=== PATIENT | male | born 1970 | race Caucasian/White ===

== ENCOUNTER 2019-12-26 18:31 | Emergency (ER) | payer BC ==
[2019-12-26 18:47] VITALS: PULSE 89
--- NOTE | 2019-12-26 19:27 | EDM.PDOC ---
ED HPI GENERAL MEDICAL PROBLEM - General Chief Complaint: Lower Extremity Injury/Pain Stated Complaint: GOUT Time Seen by Provider: 12/26/19 19:01 Source of Information: Reports: Patient History Limitations: Reports: No Limitations - History of Present Illness INITIAL COMMENTS - FREE TEXT/NARRATIVE: 49-year-old male with history of hypertension, gout presents with gout flareup o n the right foot for about 10 days. He noticed the swelling and pain began in the right great toe and spread to the right forefoot and midfoot over the last 10 days. He has been taking double doses of allopurinol over the last 3 days with improvement. He denies fever, chills, trauma, immunocompromise state. ROS: A 10-point review of systems, other than pertinent positives and negatives as stated per HPI, is otherwise negative PHYSICAL EXAM General: AOx4, GCS = 15, mild distress HEENT: dry mucous membrane Neck: supple, no meningismus, no Kernig or Brudzinski Cardiac: S1S2 RRR Respiratory: CTAB, no crackles or rales, no wheezing Abdomen: Soft, nontender, no rebound or guarding, nondistended, no pulsatile mass. Back: nontender Musculoskeletal: NVI distally, nml painless ROM to right ankle. Erythema/swelling/tenderness to right forefoot. No skin ulcers on right foot sole. Neuro: No focal deficits right foot, left knee Pain Score (Numeric/FACES): 10 - Related Data Allergies Allergy/AdvReac Type Severity Reaction Status Date / Time No Known Allergies Allergy Verified 12/26/19 18:47 Home Meds: Home Meds Indomethacin 50 mg PO TID #30 capsule 12/26/19 [Rx] predniSONE [Prednisone] 30 mg PO DAILY #5 tablet 12/26/19 [Rx] Past Medical History HEENT History: Reports: None Cardiovascular History: Reports: Hypertension Respiratory History: Reports: None Gastrointestinal History: Reports: None Genitourinary History: Reports: None Musculoskeletal History: Reports: Gout Neurological History: Reports: None Psychiatric History: Reports: None Endocrine/Metabolic History: Reports: None Hematologic History: Reports: None Immunologic History: Reports: None Oncologic (Cancer) History: Reports: None Dermatologic History: Reports: None - Infectious Disease History Infectious Disease History: Reports: Chicken Pox - Past Surgical History Head Surgeries/Procedures: Reports: None Cardiovascular Surgical History: Reports: Other (See Below) Other Cardiovascular Surgeries/Procedures: Open heart surgery on 04/13/18, Valve replaced Social & Family History - Family History Family Medical History: Noncontributory - Tobacco Use Smoking Status *Q: Never Smoker - Caffeine Use Caffeine Use: Reports: Coffee - Recreational Drug Use Recreational Drug Use: No Review of Systems - Review of Systems Review Of Systems: Comprehensive ROS is negative, except as noted in HPI. ED EXAM, GENERAL - Physical Exam Exam: Not Obtained (see dictation) Course - Vital Signs Last Recorded V/S: Last Vital Signs Temp 98.1 F 12/26/19 18:44 Pulse 89 12/26/19 18:44 Resp 20 12/26/19 18:44 BP 132/87 12/26/19 18:44 Pulse Ox 96 12/26/19 18:44 - Re-Assessments/Exams Free Text/Narrative Re-Assessment/Exam: 12/26/19 19:33 - He exhibits normal vital signs and has exhibited a normal gait. I advised the patient to return to the ER for reevaluation if symptoms worsened, and to follow up with their PCP within 2-3 days. MEDICAL DECISION MAKING: I reviewed the patients past medical records, lab and radiographic findings. I discussed the case with the patient. My differential diagnosis included: Gouty arthritis, cellulitis. Patient exhibits signs consistent with his gout. It initiated with pain and swelling to his right great toe, gradually migrating to his right forefoot over the last 10 days. He has been taking double doses of allopurinol with mild symptomatic relief. He has not taking any anti-inflammatory medication. He denies any fever, chills, pain with joint range of motion, he is not diabetic or immunocompromise, I do not suspect septic arthritis. His compartments are soft, I do not suspect compartment syndrome. I did give him strict return precautions for fever, chills, worsening pain despite treatments with prednisone and indomethacin prescribed today. Departure - Departure Time of Disposition: 19:35 Disposition: Home, Self-Care 01 Condition: Good Clinical Impression: Gouty arthritis - Discharge Information *PRESCRIPTION DRUG MONITORING PROGRAM REVIEWED*: Not Applicable *COPY OF PRESCRIPTION DRUG MONITORING REPORT IN PATIENT SURESH: Not Applicable Prescriptions: Indomethacin 50 mg PO TID #30 capsule predniSONE [Prednisone] 30 mg PO DAILY #5 tablet Instructions: Low-Purine Eating Plan Referrals: Ignacio Hernández MD [Primary Care Provider] - 3 Days Forms: ED Department Discharge Additional Instructions: The following information is given to patients seen in the emergency department who are being discharged to home. This information is to outline your options for follow-up care. We provide all patients seen in our emergency department with a follow-up referral. The need for follow-up, as well as the timing and circumstances, are variable depending upon the specifics of your emergency department visit. If you don't have a primary care physician on staff, we will provide you with a referral. We always advise you to contact your personal physician following an emergency department visit to inform them of the circumstance of the visit and for follow-up with them and/or the need for any referrals to a consulting specialist. The emergency department will also refer you to a specialist when appropriate. This referral assures that you have the opportunity for follow-up care with a specialist. All of these measure are taken in an effort to provide you with optimal care, which includes your follow-up. Under all circumstances we always encourage you to contact your private physician who remains a resource for coordinating your care. When calling for follow-up care, please make the office aware that this follow-up is from your recent emergency room visit. If for any reason you are refused follow-up, please contact the [facility] Emergency Department at and asked to speak to the emergency department charge nurse. If you do not have a primary care doctor, please follow up with the clinics below within 3-5 days. [facility] - [facility] [address] [place] [id number] [facility] [address] [place] [address] Sepsis Event Note (ED) - Evaluation Sepsis Screening Result: No Definite Risk - Focused Exam Vital Signs: Vital Signs Temp Pulse Resp BP Pulse Ox 12/26/19 18:44 98.1 F 89 20 132/87 96
[2019-12-26 19:49] VITALS: BP 115/79
== END 2019-12-26 19:45 | disposition home or self-care (01) ==
LOC: MW.ED 18:31
DX: M10.9 Gout, unspecified (principal); I10 Essential (primary) hypertension; Z79.899 Other long term (current) drug therapy
CPT/HCPCS: 99283

== ENCOUNTER 2020-05-01 10:35 | Emergency (ER) | payer BC ==
[2020-05-01] MEDS ORDERED: Sodium Chloride 0.9% 10 ML Syringe FLUSH PRN (10:55)
[2020-05-01] MEDS ORDERED: Sodium Chloride 0.9% 2.5 ML Syringe FLUSH PRN (10:55)
--- NOTE | 2020-05-01 10:57 | EDM.PDOC ---
ED HPI GENERAL MEDICAL PROBLEM - General Chief Complaint: Respiratory Problem Stated Complaint: COVID Time Seen by Provider: 05/01/20 10:55 Source of Information: Reports: Patient, EMS History Limitations: Reports: No Limitations - History of Present Illness INITIAL COMMENTS - FREE TEXT/NARRATIVE: This is a 49-year-old male with a past medical history of CABG, gout, presenting with altered mental status and shortness of breath. He arrives to the hospital by ambulance. Paramedics note that he was diagnosed with COVID-19 about 1 week ago. Patient called the ambulance today due to worsening shortness of breath. When paramedics arrived, the patient exhibited altered mental status and had room air saturations in the 70s. They placed him on high flow oxygen and his saturations only improved to 88%. He became increasingly altered in route so they began assisting ventilations with a [id number]. Patient arrives to the hospital with altered mental status and respiratory failure, he is nonverbal and unable to participate in the HPI. ROS: Unable to obtain due to respiratory failure and critical illness. Past medical history: Reviewed, no additional pertinent history. Surgical history: Reviewed in system, no additional pertinent history. Social history: Reviewed in system, no additional pertinent history. Family history: Reviewed in system, no additional pertinent history. PHYSICAL EXAM Vital signs reviewed. Nursing notes reviewed. Constitutional: Awake, ill-appearing. Head: Normocephalic, atraumatic. Eyes: EOMI, conjunctiva normal, no discharge, no scleral icterus. Ears, Nose, Throat: External ears and nose normal, moist oral mucosa. Cardiovascular: Tachycardic, 2+ radial pulse, capillary refill less than 2 seconds. Pulmonary: Tachypneic, rapid and shallow breathing, Abdomen/GI: Obese, soft nontender, nondistended, no guarding or rigidity, no masses. Musculoskeletal: No deformities. Integumentary: Appropriate color for ethnicity, warm, cool, no pallor or jaundice, no rash. Neurologic: Eyes open but nonverbal, moving all extremities. Psychiatric: Unable to assess This patient was seen and evaluated during the 2019 SARS-CoV-2 novel coronavirus pandemic period. Community viral transmission is ongoing at time of this encounter and the emergency department is operating under pandemic response procedures. - Related Data Allergies Allergy/AdvReac Type Severity Reaction Status Date / Time No Known Allergies Allergy Verified 12/26/19 18:47 Home Meds: Home Meds Indomethacin 50 mg PO TID #30 capsule 12/26/19 [Rx] predniSONE [Prednisone] 30 mg PO DAILY #5 tablet 12/26/19 [Rx] Past Medical History HEENT History: Reports: None Cardiovascular History: Reports: Hypertension Respiratory History: Reports: None Gastrointestinal History: Reports: None Genitourinary History: Reports: None Musculoskeletal History: Reports: Gout Neurological History: Reports: None Psychiatric History: Reports: None Endocrine/Metabolic History: Reports: None Hematologic History: Reports: None Immunologic History: Reports: None Oncologic (Cancer) History: Reports: None Dermatologic History: Reports: None - Infectious Disease History Infectious Disease History: Reports: Chicken Pox - Past Surgical History Head Surgeries/Procedures: Reports: None Cardiovascular Surgical History: Reports: Other (See Below) Other Cardiovascular Surgeries/Procedures: Open heart surgery on 04/13/18, Valve replaced Social & Family History - Family History Family Medical History: No Pertinent Family History - Caffeine Use Caffeine Use: Reports: Coffee ED ROS GENERAL - Review of Systems Review Of Systems: See Below ED EXAM, GENERAL - Physical Exam Exam: See Below ED RESPIRATORY PROCEDURES - Endotracheal Intubation Time of Intubation: 11:12 ET Intubation Indication: Respiratory Failure, Airway Protection Preparation: Suction, Balloon Tested, BVM Set Up, Difficult Airway Equip Airway Assessment: Obese Pre-Oxygenation: Assisted with BVM, 100% FiO2 Anesthesia Meds: Etomidate, Rocuronium Placement: Orotracheal Cords Visualized: Yes, Grade 1 ETT Size In mm: 8.0 Number of Attempts: 1 Confirmed By: CO2 Indicator, Bilateral Breath Sounds, Chest Xray Tube Secured By: By RT Endotracheal Intubation Comment: Advanced 2 cm after post-intubation x-ray. #1 Interpretation EKG Interpretation Comments: 12-Lead ECG Interpretation Acquired: 11:11 AM Rhythm: Sinus tachycardia Rate: 126 bpm [place]: Normal Intervals: Left bundle branch block Ectopy: None RV Strain: No obvious RV strain pattern. ST Segments/T-Waves: No notable changes Acute Ischemic Changes: None apparent Interpretation: No STEMI Course - Vital Signs Text/Narrative:: 49-year-old male with acute hypoxic respiratory failure. Immediately roomed on arrival, transferred to hospital bed, monitoring equipment attached.. He has significant tachypnea and altered mental status. Decision made to intubate by rapid sequence intubation given decreased mental status. Additional IV access was established. Intubation was uncomplicated - refer to the procedure note. Chest x-ray shows the ET tube in the trachea in high position, it was advanced 2 cm. Chest x-ray shows patchy bilateral airspace opacities. Patient was given a bolus of propofol and started on a propofol infusion. A gas tric tube was placed. A Huang catheter was also placed with scant output. 1:05 PM: Labs show leukocytosis of 28.35, platelets 541. INR is normal. ABG on the ventilator shows metabolic acidosis with pH 6.85, bicarb 11, PCO2 57, PO2 114. Lactate is 1.5. Metabolic panel shows renal failure - creatinine 17.1, carbon dioxide is 7.8, glucose is 172. Troponin and BNP are negative. Salicylates, acetaminophen, ketones are negative. We are increasing the minute volume to help combat the metabolic acidosis and we are going to order a sodium bicarbonate infusion. I spoke with the accepting billboard poster helper at [facility] in [place] who agrees to accept the transfer. We are waiting for the flight crew to arrive to transport the patient. 11:20 AM: We are attempting to find an accepting hospital with an ICU bed for the patient. Given IV cefepime, vancomycin, and dexamethasone. 2:10 PM: The flight crew has arrived. The patient continues to have severe metabolic acidosis, although his pH is slightly improved after adjusting his ventilator settings to increase the minute volume. He is now on a sodium bicarbonate infusion. He will likely need to have emergent dialysis performed at [facility]. He also has developed some hypotension. The propofol infusion has stopped. We are going to start a fentanyl infusion instead of propofol. 3:40 PM: The flight crew has not left the emergency department yet. I was called to the bedside by the patient's nurse. The patient was hypotensive with a systolic blood pressure between 40s to 50s. I instructed the flight crew to stop the fentanyl infusion. The flight crew had apparently started the patient on norepinephrine infusion at 30 mcg/min without informing me. I administered 50 mcg of epinephrine 1:10,000 IV. I instructed the flight crew to increase their norepinephrine infusion to 55 mcg/min (roughly 0.5 mcg/kg/min). The blood pressure promptly improved to 160 systolic. We ordered a vasopressin bag which the flight crew can utilize if needed. The blood pressure seems to have recovered appropriately at this point. Flight crew departed the ER in good condition. Last Recorded V/S: Last Vital Signs Temp 36.5 C 05/01/20 11:40 Pulse 119 H 05/01/20 12:03 Resp 14 05/01/20 12:03 BP 157/97 H 05/01/20 12:03 Pulse Ox 94 L 05/01/20 12:03 - Orders/Labs/Meds Orders: Active Orders 24 hr Category Date Time Status Cardiac Monitoring [RC] . DIRECTED Care 05/01/20 10:55 Active EKG 12 Lead [EKG Documentation Completion] [RC] STAT Care 05/01/20 10:57 Active Pulse Oximetry [RC] ASDIRECTED Care 05/01/20 10:55 Active RASS Sedation Scale [RC] ASDIRECTED Care 05/01/20 12:09 Active CULTURE BLOOD [BC] Stat Lab 05/01/20 11:11 Received CULTURE BLOOD [BC] Stat Lab 05/01/20 11:20 Received Norepinephrine Bit/0.9 % NaCl [Norepinephr-0.9% NaCl 4 Med 05/01/20 14:15 Active mg/250] 4 mg in 250 ml IV TITRATE Sodium Bicarbonate [Sodium Bicarbonate 8.4%] 150 meq Med 05/01/20 13:00 Active Dextrose 5% in Water 1,000 ml IV ONETIME Sodium Chloride 0.9% [Saline Flush] Med 05/01/20 10:55 Active 10 ml FLUSH ASDIRECTED PRN Sodium Chloride 0.9% [Saline Flush] Med 05/01/20 10:55 Active 2.5 ml FLUSH ASDIRECTED PRN Vasopressin 100 units Med 05/01/20 15:30 Active Sodium Chloride 0.9% [Normal Saline] 95 ml IV TITRATE fentaNYL [Sublimaze] 2,500 mcg Med 05/01/20 14:30 Active Sodium Chloride 0.9% [Normal Saline] 200 ml IV TITRATE propofoL [Diprivan 100 ML] 100 ml Med 05/01/20 12:15 Active IV TITRATE Blood Culture x2 Reflex Set [OM.PC] Stat Ot 05/01/20 10:56 Ordered Desired Level of Sedation (RASS) [AST] Click to Edit [facility] 05/01/20 12:09 Ordered Saline Lock Insert [OM.PC] Stat Ot 05/01/20 10:55 Ordered Severe Sepsis Onset Time [OM.PC] Stat Ot 05/01/20 10:56 Ordered Medication Orders Propofol (Diprivan 100 Ml) 100 mls @ 28.56 mls/hr IV TITRATE YOVANI; Protocol Sodium Bicarbonate 150 meq/ (Dextrose/Water) 1,150 mls @ 200 mls/hr IV ONETIME ONE Stop: 05/01/20 18:40 Last Admin: 05/01/20 13:44 Dose: 200 mls/hr Documented by: HAL Norepinephrine Bitartrate (Norepinephr-0.9% Nacl 4 Mg/250) 4 mg in 250 mls @ 37.5 mls/hr IV TITRATE YOVANI; Protocol Fentanyl 2,500 mcg/ Sodium (Chloride) 250 mls @ 11.9 mls/hr IV TITRATE YOVANI; Protocol Vasopressin 100 units/ Sodium (Chloride) 100 mls @ 0.6 mls/hr IV TITRATE YOVANI; Protocol Sodium Chloride (Saline Flush) 10 ml FLUSH ASDIRECTED PRN PRN Reason: Keep Vein Open Last Admin: 05/01/20 11:47 Dose: 10 ml Documented by: SURI Sodium Chloride (Saline Flush) 2.5 ml FLUSH ASDIRECTED PRN PRN Reason: Keep Vein Open Last Admin: 05/01/20 11:48 Dose: 2.5 ml Documented by: SURI Labs: Laboratory Tests 05/01/20 05/01/20 05/01/20 Range/Units 10:53 10:53 10:53 WBC (4.0-11.0) K/uL RBC (4.50-5.90) M/uL Hgb (13.0-17.0) g/dL Hct (38.0-50.0) % MCV (80.0-98.0) fL MCH (27.0-32.0) pg MCHC (31.0-37.0) g/dL RDW Std Deviation (28.0-62.0) fl RDW Coeff of [place] (11.0-15.0) % Plt Count (150-400) K/uL MPV (7.40-12.00) fL Add Manual Diff Neutrophils % (Manual) (48.0-80.0) % Lymphocytes % (Manual) (16.0-40.0) % Monocytes % (Manual) (0.0-15.0) % Basophils % (Manual) (0.0-1.5) % Nucleated RBC % /100WBC Absolute Seg Neuts (1.4-5.7) Lymphocytes # (Manual) (0.6-2.4) Monocytes # (Manual) (0.0-0.8) Basophils # (Manual) (0.0-0.1) Nucleated RBCs # K/uL INR 1.15 ABG pH (7.35-7.45) ABG pCO2 (35-45) mmHG ABG pO2 (75-100) mmHG ABG HCO3 (22-26) mEq/L ABG Total CO2 ABG Base Excess (-2.0-2.0) VBG pH 7.06 L (7.31-7.41) VBG pCO2 23 L (35-45) mmHG VBG pO2 119 H (30-40) mmHG VBG HCO3 7 L (22-30) mEq/L VBG Total CO2 6 L (41-51) mmol/L VBG Base Excess -22.1 L (-3.0-3.0) Lactate 1.5 (0.20-2.00) mmol/L Sodium (136-148) mmol/L Potassium (3.5-5.1) mmol/L Chloride (98-107) mmol/L Carbon Dioxide (21.0-32.0) mmol/L BUN (7.0-18.0) mg/dL Creatinine (0.8-1.3) mg/dL Est Cr Clr Drug Dosing mL/min Estimated GFR (MDRD) ml/min Glucose (74-106) mg/dL Calcium (8.5-10.1) mg/dL Total Bilirubin (0.2-1.0) mg/dL AST (15-37) IU/L ALT (14-63) IU/L Alkaline Phosphatase (46-116) U/L Troponin I (0.000-0.056) ng/mL B-Natriuretic Peptide (<100) PG/ML Total Protein (6.4-8.2) g/dL Albumin (3.4-5.0) g/dL Globulin (2.6-4.0) g/dL Albumin/Globulin Ratio (0.9-1.6) Urine Color Urine Appearance Urine pH (5.0-8.0) Ur Specific [place] (1.001-1.035) Urine Protein (NEGATIVE) mg/dL Urine Glucose (UA) (NEGATIVE) mg/dL Urine Ketones (NEGATIVE) mg/dL Urine Occult Blood (NEGATIVE) Urine Nitrite (NEGATIVE) Urine Bilirubin (NEGATIVE) Urine Urobilinogen (<2.0) EU/dL Ur Leukocyte Esterase (NEGATIVE) Urine RBC (0-2/HPF) Urine WBC (0-5/HPF) Ur Epithelial Cells (NONE-FEW) Amorphous Sediment (NEGATIVE) Urine Bacteria (NEGATIVE) Salicylates (0-20) mg/dL Acetaminophen ug/mL Ketones (NEG) 05/01/20 05/01/20 05/01/20 Range/Units 10:53 10:53 10:53 WBC 28.35 H (4.0-11.0) K/uL RBC 5.52 (4.50-5.90) M/uL Hgb 16.8 (13.0-17.0) g/dL Hct 49.2 (38.0-50.0) % MCV 89.1 (80.0-98.0) fL MCH 30.4 (27.0-32.0) pg MCHC 34.1 (31.0-37.0) g/dL RDW Std Deviation 49.7 (28.0-62.0) fl RDW Coeff of [place] 15 (11.0-15.0) % Plt Count 541 H (150-400) K/uL MPV 10.90 (7.40-12.00) fL Add Manual Diff YES Neutrophils % (Manual) 86 H (48.0-80.0) % Lymphocytes % (Manual) 4 L (16.0-40.0) % Monocytes % (Manual) 9 (0.0-15.0) % Basophils % (Manual) 1 (0.0-1.5) % Nucleated RBC % 0.0 /100WBC Absolute Seg Neuts 24.4 H (1.4-5.7) Lymphocytes # (Manual) 1.1 (0.6-2.4) Monocytes # (Manual) 2.6 H (0.0-0.8) Basophils # (Manual) 0.3 H (0.0-0.1) Nucleated RBCs # 0 K/uL INR ABG pH (7.35-7.45) ABG pCO2 (35-45) mmHG ABG pO2 (75-100) mmHG ABG HCO3 (22-26) mEq/L ABG Total CO2 ABG Base Excess (-2.0-2.0) VBG pH (7.31-7.41) VBG pCO2 (35-45) mmHG VBG pO2 (30-40) mmHG VBG HCO3 (22-30) mEq/L VBG Total CO2 (41-51) mmol/L VBG Base Excess (-3.0-3.0) Lactate (0.20-2.00) mmol/L Sodium 142 (136-148) mmol/L Potassium 5.1 (3.5-5.1) mmol/L Chloride 108 H (98-107) mmol/L Carbon Dioxide 7.8 L (21.0-32.0) mmol/L BUN 208 H (7.0-18.0) mg/dL Creatinine 17.1 H (0.8-1.3) mg/dL Est Cr Clr Drug Dosing 5.74 mL/min Estimated GFR (MDRD) 3.0 ml/min Glucose 172 H (74-106) mg/dL Calcium 8.7 (8.5-10.1) mg/dL Total Bilirubin 0.5 (0.2-1.0) mg/dL AST 15 (15-37) IU/L ALT 20 (14-63) IU/L Alkaline Phosphatase 116 (46-116) U/L Troponin I < 0.050 (0.000-0.056) ng/mL B-Natriuretic Peptide 13 (<100) PG/ML Total Protein 7.6 (6.4-8.2) g/dL Albumin 2.9 L (3.4-5.0) g/dL Globulin 4.7 H (2.6-4.0) g/dL Albumin/Globulin Ratio 0.6 L (0.9-1.6) Urine Color Urine Appearance Urine pH (5.0-8.0) Ur Specific [place] (1.001-1.035) Urine Protein (NEGATIVE) mg/dL Urine Glucose (UA) (NEGATIVE) mg/dL Urine Ketones (NEGATIVE) mg/dL Urine Occult Blood (NEGATIVE) Urine Nitrite (NEGATIVE) Urine Bilirubin (NEGATIVE) Urine Urobilinogen (<2.0) EU/dL Ur Leukocyte Esterase (NEGATIVE) Urine RBC (0-2/HPF) Urine WBC (0-5/HPF) Ur Epithelial Cells (NONE-FEW) Amorphous Sediment (NEGATIVE) Urine Bacteria (NEGATIVE) Salicylates (0-20) mg/dL Acetaminophen ug/mL Ketones (NEG) 05/01/20 05/01/20 05/01/20 Range/Units 10:53 10:53 12:26 WBC (4.0-11.0) K/uL RBC (4.50-5.90) M/uL Hgb (13.0-17.0) g/dL Hct (38.0-50.0) % MCV (80.0-98.0) fL MCH (27.0-32.0) pg MCHC (31.0-37.0) g/dL RDW Std Deviation (28.0-62.0) fl RDW Coeff of [place] (11.0-15.0) % Plt Count (150-400) K/uL MPV (7.40-12.00) fL Add Manual Diff Neutrophils % (Manual) (48.0-80.0) % Lymphocytes % (Manual) (16.0-40.0) % Monocytes % (Manual) (0.0-15.0) % Basophils % (Manual) (0.0-1.5) % Nucleated RBC % /100WBC Absolute Seg Neuts (1.4-5.7) Lymphocytes # (Manual) (0.6-2.4) Monocytes # (Manual) (0.0-0.8) Basophils # (Manual) (0.0-0.1) Nucleated RBCs # K/uL INR ABG pH 6.885 L* (7.35-7.45) ABG pCO2 57 H (35-45) mmHG ABG pO2 114 H (75-100) mmHG ABG HCO3 11 L (22-26) mEq/L ABG Total CO2 10.9 ABG Base Excess -23.4 L (-2.0-2.0) VBG pH (7.31-7.41) VBG pCO2 (35-45) mmHG VBG pO2 (30-40) mmHG VBG HCO3 (22-30) mEq/L VBG Total CO2 (41-51) mmol/L VBG Base Excess (-3.0-3.0) Lactate (0.20-2.00) mmol/L Sodium (136-148) mmol/L Potassium (3.5-5.1) mmol/L Chloride (98-107) mmol/L Carbon Dioxide (21.0-32.0) mmol/L BUN (7.0-18.0) mg/dL Creatinine (0.8-1.3) mg/dL Est Cr Clr Drug Dosing mL/min Estimated GFR (MDRD) ml/min Glucose (74-106) mg/dL Calcium (8.5-10.1) mg/dL Total Bilirubin (0.2-1.0) mg/dL AST (15-37) IU/L ALT (14-63) IU/L Alkaline Phosphatase (46-116) U/L Troponin I (0.000-0.056) ng/mL B-Natriuretic Peptide (<100) PG/ML Total Protein (6.4-8.2) g/dL Albumin (3.4-5.0) g/dL Globulin (2.6-4.0) g/dL Albumin/Globulin Ratio (0.9-1.6) Urine Color Urine Appearance Urine pH (5.0-8.0) Ur Specific [place] (1.001-1.035) Urine Protein (NEGATIVE) mg/dL Urine Glucose (UA) (NEGATIVE) mg/dL Urine Ketones (NEGATIVE) mg/dL Urine Occult Blood (NEGATIVE) Urine Nitrite (NEGATIVE) Urine Bilirubin (NEGATIVE) Urine Urobilinogen (<2.0) EU/dL Ur Leukocyte Esterase (NEGATIVE) Urine RBC (0-2/HPF) Urine WBC (0-5/HPF) Ur Epithelial Cells (NONE-FEW) Amorphous Sediment (NEGATIVE) Urine Bacteria (NEGATIVE) Salicylates 1.7 (0-20) mg/dL Acetaminophen <2.0 ug/mL Ketones NEGATIVE (NEG) 11/18/20 11/18/20 Range/Units 12:26 14:01 WBC (4.0-11.0) K/uL RBC (4.50-5.90) M/uL Hgb (13.0-17.0) g/dL Hct (38.0-50.0) % MCV (80.0-98.0) fL MCH (27.0-32.0) pg MCHC (31.0-37.0) g/dL RDW Std Deviation (28.0-62.0) fl RDW Coeff of [place] (11.0-15.0) % Plt Count (150-400) K/uL MPV (7.40-12.00) fL Add Manual Diff Neutrophils % (Manual) (48.0-80.0) % Lymphocytes % (Manual) (16.0-40.0) % Monocytes % (Manual) (0.0-15.0) % Basophils % (Manual) (0.0-1.5) % Nucleated RBC % /100WBC Absolute Seg Neuts (1.4-5.7) Lymphocytes # (Manual) (0.6-2.4) Monocytes # (Manual) (0.0-0.8) Basophils # (Manual) (0.0-0.1) Nucleated RBCs # K/uL INR ABG pH 6.905 L* (7.35-7.45) ABG pCO2 49 H (35-45) mmHG ABG pO2 111 H (75-100) mmHG ABG HCO3 10 L (22-26) mEq/L ABG Total CO2 9.8 ABG Base Excess -23.6 L (-2.0-2.0) VBG pH (7.31-7.41) VBG pCO2 (35-45) mmHG VBG pO2 (30-40) mmHG VBG HCO3 (22-30) mEq/L VBG Total CO2 (41-51) mmol/L VBG Base Excess (-3.0-3.0) Lactate (0.20-2.00) mmol/L Sodium (136-148) mmol/L Potassium (3.5-5.1) mmol/L Chloride (98-107) mmol/L Carbon Dioxide (21.0-32.0) mmol/L BUN (7.0-18.0) mg/dL Creatinine (0.8-1.3) mg/dL Est Cr Clr Drug Dosing mL/min Estimated GFR (MDRD) ml/min Glucose (74-106) mg/dL Calcium (8.5-10.1) mg/dL Total Bilirubin (0.2-1.0) mg/dL AST (15-37) IU/L ALT (14-63) IU/L Alkaline Phosphatase (46-116) U/L Troponin I (0.000-0.056) ng/mL B-Natriuretic Peptide (<100) PG/ML Total Protein (6.4-8.2) g/dL Albumin (3.4-5.0) g/dL Globulin (2.6-4.0) g/dL Albumin/Globulin Ratio (0.9-1.6) Urine Color YELLOW Urine Appearance HAZY Urine pH 5.0 (5.0-8.0) Ur Specific [place] >= 1.030 (1.001-1.035) Urine Protein 30 H (NEGATIVE) mg/dL Urine Glucose (UA) NEGATIVE (NEGATIVE) mg/dL Urine Ketones NEGATIVE (NEGATIVE) mg/dL Urine Occult Blood SMALL H (NEGATIVE) Urine Nitrite NEGATIVE (NEGATIVE) Urine Bilirubin NEGATIVE (NEGATIVE) Urine Urobilinogen 0.2 (<2.0) EU/dL Ur Leukocyte Esterase NEGATIVE (NEGATIVE) Urine RBC 0-3 (0-2/HPF) Urine WBC 1-3 (0-5/HPF) Ur Epithelial Cells FEW (NONE-FEW) Amorphous Sediment LIGHT (NEGATIVE) Urine Bacteria FEW (NEGATIVE) Salicylates (0-20) mg/dL Acetaminophen ug/mL Ketones (NEG) Meds: Medications Generic Name Dose Route Start Last Admin Trade Name Arunq PRN Reason Stop Dose Admin Propofol 100 mls @ 28.56 mls/hr 05/01/20 12:15 Diprivan 100 Ml IV TITRATE YOVANI Protocol 40 MCG/KG/MIN Sodium Bicarbonate 150 meq/ 1,150 mls @ 200 mls/hr 05/01/20 13:00 05/01/20 13:44 Dextrose/Water IV 05/01/20 18:40 200 mls/hr ONETIME ONE Administration Norepinephrine Bitartrate 4 mg in 250 mls @ 37.5 mls/hr 05/01/20 14:15 Norepinephr-0.9% Nacl 4 Mg/250 IV TITRATE YOVANI Protocol 10 MCG/MIN Fentanyl 2,500 mcg/ Sodium 250 mls @ 11.9 mls/hr 05/01/20 14:30 Chloride IV TITRATE YOVANI Protocol 1 MCG/KG/HR Vasopressin 100 units/ Sodium 100 mls @ 0.6 mls/hr 05/01/20 15:30 Chloride IV TITRATE YOVANI Protocol 0.01 UNITS/MIN Sodium Chloride 10 ml 05/01/20 10:55 05/01/20 11:47 Saline Flush FLUSH 10 ml ASDIRECTED PRN Administration Keep Vein Open Sodium Chloride 2.5 ml 05/01/20 10:55 05/01/20 11:48 Saline Flush FLUSH 2.5 ml ASDIRECTED PRN Administration Keep Vein Open Discontinued Medications Generic Name Dose Route Start Last Admin Trade Name Freq PRN Reason Stop Dose Admin Dexamethasone 10 mg 05/01/20 11:29 05/01/20 11:41 Decadron IVPUSH 05/01/20 11:30 10 mg ONETIME ONE Administration Etomidate 35 mg 05/01/20 12:08 05/01/20 10:49 Amidate IVPUSH 05/01/20 12:09 35 mg ONETIME ONE Administration Cefepime HCl 2 gm/ Premix 50 mls @ 100 mls/hr 05/01/20 11:22 05/01/20 11:38 IV 05/01/20 11:51 100 mls/hr ONETIME ONE Administration Vancomycin HCl 2 gm/ Premix 400 mls @ 200 mls/hr 05/01/20 11:23 05/01/20 12:27 IV 05/01/20 13:22 200 mls/hr STAT ONE Administration Sodium Bicarbonate 150 meq/ 1,150 mls @ 200 mls/hr 05/01/20 12:56 05/01/20 15:04 Dextrose/Water IV 05/01/20 18:40 Not Given ONETIME ONE Norepinephrine Bitartrate Confirm 05/01/20 14:08 05/01/20 15:03 Norepinephr-0.9% Nacl 4 Mg/250 Administered 05/01/20 14:09 Not Given Dose 4 mg in 250 mls @ as directed IV .STK-MED ONE Propofol 4 mg 05/01/20 12:10 05/01/20 11:03 Diprivan 20 Ml IVPUSH 05/01/20 12:11 4 mg ONETIME ONE Administration Rocuronium [place] 150 mg 05/01/20 12:09 05/01/20 10:48 Zemuron IVPUSH 05/01/20 12:10 150 mg ONETIME ONE Administration Departure - Departure Time of Disposition: 11:06 Disposition: DC/Tfer to Acute Hospital 02 Preliminary Cause of *Q: Respiratory Failure Condition: Critical Clinical Impression: COVID-19 virus infection Respiratory failure Qualifiers: Chronicity: acute Respiratory failure complication: hypoxia Qualified Code(s): J96.01 - Acute respiratory failure with hypoxia Acute renal failure Qualifiers: Acute renal failure type: unspecified Qualified Code(s): N17.9 - Acute kidney failure, unspecified - Discharge Information Referrals: Ignacio Hernández MD [Primary Care Provider] - Forms: ED Department Discharge Critical Care Note - Critical Care Note Total Time (mins): 75 Comments: Critical care time is exclusive of billable procedures and the time to perform these procedures. Critical care time was used to prevent vital system organ failure and deterioration. Critical care time includes bedside management and high-complexity decision making requiring my highest level of mental preparedness and attention. This includes reviewing the patient's chart and prior medical records, ordering and reviewing interpreting laboratory studies and imaging results, interpretation of vital signs and EKG, pulse oximetry, and discussion with the admitting team or accepting facility, discussions with EMS and nursing staff, and discussions with any family members if available. Acute hypoxic respiratory failure requiring intubation. Acute renal failure with severe metabolic acidosis requiring high minute volumes and sodium bicarbonate infusion. Hypotension requiring norepinephrine infusion to stabilize hemodynamics. Aeromedical transport to intensive care unit. Sepsis Event Note (ED) - Focused Exam Vital Signs: Vital Signs Temp Pulse Resp BP Pulse Ox 05/01/20 12:03 119 H 14 157/97 H 94 L 05/01/20 11:40 36.5 C 121 H 14 165/104 H 98 05/01/20 11:14 126 H 14 149/94 H 05/01/20 10:50 127 H 12 95/65 90 L 05/01/20 10:44 35.8 C L 117 H 14 122/78 96 05/01/20 10:35 35.8 C L 113 H 34 H 122/78 98 - My Orders Last 24 Hours: My Active Orders 05/01/20 10:55 Cardiac Monitoring [RC] . DIRECTED Pulse Oximetry [RC] ASDIRECTED Sodium Chloride 0.9% [Saline Flush] 10 ml FLUSH ASDIRECTED PRN Sodium Chloride 0.9% [Saline Flush] 2.5 ml FLUSH ASDIRECTED PRN Saline Lock Insert [OM.PC] Stat 05/01/20 10:56 Blood Culture x2 Reflex Set [OM.PC] Stat Severe Sepsis Onset Time [OM.PC] Stat 05/01/20 10:57 EKG 12 Lead [EKG Documentation Completion] [RC] STAT 05/01/20 11:11 CULTURE BLOOD [BC] Stat 05/01/20 11:20 CULTURE BLOOD [BC] Stat 05/01/20 12:09 RASS Sedation Scale [RC] ASDIRECTED Desired Level of Sedation (RASS) [AST] Click to Edit 05/01/20 12:15 propofoL [Diprivan 100 ML] 100 ml IV TITRATE 05/01/20 13:00 Sodium Bicarbonate [Sodium Bicarbonate 8.4%] 150 meq Dextrose 5% in Water 1,000 ml IV ONETIME 05/01/20 14:15 Norepinephrine Bit/0.9 % NaCl [Norepinephr-0.9% NaCl 4 mg/250] 4 mg in 250 ml IV TITRATE 05/01/20 14:30 fentaNYL [Sublimaze] 2,500 mcg Sodium Chloride 0.9% [Normal Saline] 200 ml IV TITRATE 05/01/20 15:30 Vasopressin 100 units Sodium Chloride 0.9% [Normal Saline] 95 ml IV TITRATE - Assessment/Plan Last 24 Hours: My Active Orders 05/01/20 10:55 Cardiac Monitoring [RC] . DIRECTED Pulse Oximetry [RC] ASDIRECTED Sodium Chloride 0.9% [Saline Flush] 10 ml FLUSH ASDIRECTED PRN Sodium Chloride 0.9% [Saline Flush] 2.5 ml FLUSH ASDIRECTED PRN Saline Lock Insert [OM.PC] Stat 05/01/20 10:56 Blood Culture x2 Reflex Set [OM.PC] Stat Severe Sepsis Onset Time [OM.PC] Stat 05/01/20 10:57 EKG 12 Lead [EKG Documentation Completion] [RC] STAT 05/01/20 11:11 CULTURE BLOOD [BC] Stat 05/01/20 11:20 CULTURE BLOOD [BC] Stat 05/01/20 12:09 RASS Sedation Scale [RC] ASDIRECTED Desired Level of Sedation (RASS) [AST] Click to Edit 05/01/20 12:15 propofoL [Diprivan 100 ML] 100 ml IV TITRATE 05/01/20 13:00 Sodium Bicarbonate [Sodium Bicarbonate 8.4%] 150 meq Dextrose 5% in Water 1,000 ml IV ONETIME 05/01/20 14:15 Norepinephrine Bit/0.9 % NaCl [Norepinephr-0.9% NaCl 4 mg/250] 4 mg in 250 ml IV TITRATE 05/01/20 14:30 fentaNYL [Sublimaze] 2,500 mcg Sodium Chloride 0.9% [Normal Saline] 200 ml IV TITRATE 05/01/20 15:30 Vasopressin 100 units Sodium Chloride 0.9% [Normal Saline] 95 ml IV TITRATE
[2020-05-01] MEDS ORDERED: Cefepime 2 GM in Premix Bag 1 BAG IV ONE (11:22)
[2020-05-01] MEDS ORDERED: Vancomycin/Water for INJ (PEG) 2 GM in Premix Bag 1 BAG IV ONE (11:23)
[2020-05-01] MEDS ORDERED: Dexamethasone 10 MG/ML SDV IVPUSH ONE (11:29)
[2020-05-01 11:39] LABS: CARBON DIOXIDE,CO2 7.8 mmol/L (21.0-32.0); CHLORIDE,CL 108 mmol/L (98-107); GLUCOSE RANDOM 172 mg/dL (74-106); POTASSIUM,K 5.1 mmol/L (3.5-5.1); SODIUM,NA 142 mmol/L (136-148)
--- NOTE | 2020-05-01 11:57 | CR ---
INDICATION: Status post intubation COMPARISON: None TECHNIQUE: A single view chest radiograph was acquired FINDINGS: TUBES AND LINES: There is an endotracheal tube that ends 6 centimeters from the adeel. I recommend that it be advanced by about 2.5 centimeters. The margin of an additional tube is questioned in the neck. If this is a nasogastric tube, it is not properly placed. Correlate clinically HEART AND MEDIASTINUM: Heart size normal. Sternotomy.. LUNGS AND PLEURAL SPACES: Moderate diffuse multifocal airspace disease, left greater than rightthe pleural spaces are unremarkable. OSSEOUS STRUCTURES: Age-appropriate appearance. No acute focal finding. IMPRESSION: 1. The endotracheal tube and 6 centimeters from the adeel. I recommend that it be advanced by about 2 centimeters. 2. The margin of what may be an additional tube is question in the neck. If this is a nasogastric tube, it is not properly placed. Correlate clinically. 3. Sternotomy. Moderate diffuse multifocal airspace disease. Dictated by Kaleb Duarte MD @ May 01 2020 11:53AM Signed by Dr. Kaleb Duarte @ May 01 2020 11:55AM
[2020-05-01 12:00] LABS: BLOOD UREA NITROGEN,BUN 208 mg/dL (7.0-18.0)
[2020-05-01] MEDS ORDERED: Etomidate 2 MG/ML 20 ML SDV IVPUSH ONE (12:08)
[2020-05-01] MEDS ORDERED: Rocuronium 50 MG/5 ML Vial IVPUSH ONE (12:09)
[2020-05-01] MEDS ORDERED: Propofol 200 MG/20 ML SDV IVPUSH ONE (12:10)
[2020-05-01] MEDS ORDERED: propofoL 100 ML IV SCH (12:15)
[2020-05-01 12:44] LABS: ACETAMINOPHEN <2.0 ug/mL
[2020-05-01] MEDS ORDERED: Sodium Bicarbonate 150 MEQ in Dextrose 5% in Water 1,000 ML IV ONE ×4 (12:56→13:00)
[2020-05-01] MEDS ORDERED: fentaNYL 2,500 MCG in Sodium Chloride 0.9% 200 ML IV SCH (14:30)
[2020-05-01 19:58] VITALS: BP 109/60; PULSE 108
[2020-05-01] MEDS ORDERED: EPINEPHrine 1:10,000 1 MG/10 ML Syringe ONE (21:00)
== END 2020-05-01 15:45 ==
LOC: MW.ED 10:54
DX: J96.01 Acute respiratory failure with hypoxia (principal); N17.9 Acute kidney failure, unspecified; U07.1 COVID-19; I10 Essential (primary) hypertension; M10.9 Gout, unspecified; Z79.899 Other long term (current) drug therapy
CPT/HCPCS: 31500; 36415; 36600; 43752; 51702; 71045; 80053; 80307; 81001; 82009; 82803; 83605; 83880; 84484; 85025; 85610; 87040; 93005; 94002; 96365; 96366; 96367; 96375; 99285; J0171; J0692; J1100; J2704; J3370; J3490; J7060; 93010; 99291